=== PATIENT | female | born 1945 | race Caucasian/White ===

== ENCOUNTER → 2016-06-16 | Outpatient (CLI) | payer MEDICARE ==
--- NOTE | 2016-06-16 14:51 | REPMRS ---
Patient History The patient states she has not had a clinical breast exam in over a year. Patient is postmenopausal. Family history of breast cancer in maternal aunt at age 40. Digital Mammo Screening Bilat: June 16, 2016 - Exam #: [id number] Bilateral CC and MLO view(s) were taken. Technologist: Sarah Moncada, Technologist Prior study comparison: March 05, 2015, bilateral digital mammo screening bilat performed at [facility]. January 16, 2014, bilateral digital mammo screening bilat performed at [facility]. January 05, 2013, bilateral digital mammo screening bilat performed at [facility]. FINDINGS: There are scattered fibroglandular densities. There has been no change in the appearance of the mammogram from the prior studies. There is a mild amount of scattered fibroglandular density which is fairly symmetric. There is no interval development of dominant mass, architectural distortion, or clustered microcalcification suggestive of malignancy. ASSESSMENT: BI-RADS/ACR category 1 mammogram. Negative. Recommendation Routine screening mammogram in 1 year (for women over age 40). This mammogram was interpreted with the aid of an FDA-approved computer-aided dectection system. Electronically Signed By: Artie Greer MD 06/16/16 2929
== END ==
LOC: M RAD 13:34
PROVIDERS: ATTEND Family Medicine
DX: Z12.31 Encounter for screening mammogram for malignant neoplasm of breast (principal); Z78.0 Asymptomatic menopausal state

== ENCOUNTER → 2017-07-12 | Outpatient (CLI) | payer OTHER | LOC: M RAD 10:35 | DX: Z12.31 Encounter for screening mammogram for malignant neoplasm of breast (principal) | CPT/HCPCS: 77067 ==

== ENCOUNTER → 2018-08-15 | Outpatient (CLI) | payer MEDICARE ==
--- NOTE | 2018-08-15 13:28 | REPMRS ---
Patient History The patient states she has not had a clinical breast exam in over a year. Family history of breast cancer at age 40 in maternal aunt. 3D TOMOSYNTHESIS WAS PERFORMED. Digital Mammo Screening Bilat: August 15, 2018 - Exam #: [id number] Bilateral CC and MLO view(s) were taken. Technologist: Sarah Moncada, Technologist Prior study comparison: July 12, 2017, bilateral digital mammo screening bilat performed at [facility]. June 16, 2016, bilateral digital mammo screening bilat performed at [facility]. FINDINGS: The breast tissue is heterogeneously dense. This may lower the sensitivity of mammography. There has been no change in the appearance of the mammogram from the prior studies. There is a moderate amount of residual fibroglandular tissue which is fairly symmetric. There is no interval development of dominant mass, areas of architectural distortion, or clustered microcalcification typical of malignancy. Assessment: BI-RADS/ACR category 1 mammogram. Negative Mammogram. Recommendation Routine screening mammogram in 1 year (for women over age 40). This mammogram was interpreted with the aid of an FDA-approved computer-aided dectection system. Electronically Signed By: Francis Leong MD 08/15/18 0926
== END ==
LOC: M RAD 10:22
PROVIDERS: ATTEND Registered Nurse Community Health
DX: Z12.31 Encounter for screening mammogram for malignant neoplasm of breast (principal)

== ENCOUNTER → 2019-12-28 | Outpatient (CLI) | payer MEDICARE ==
--- NOTE | 2020-01-21 12:11 | REPMRS ---
Patient History The patient states she has not had a clinical breast exam in over a year. Patient is postmenopausal. Family history of breast cancer at age 40 in maternal aunt. No Hormone Replacement Therapy Digital Woman Screen Mammo: December 28, 2019 - Exam #: [id number] Bilateral CC and MLO view(s) were taken. Technologist: Sheyla Perez, Technologist Prior study comparison: August 15, 2018, bilateral digital mammo screening bilat, performed at [facility]. July 12, 2017, bilateral digital mammo screening bilat, performed at [facility]. June 16, 2016, bilateral digital mammo screening bilat, performed at [facility]. FINDINGS: There are scattered fibroglandular densities. The Volpara volumetric breast density category is:B. There has been no change in the appearance of the mammogram from the prior studies. There is a mild amount of scattered fibroglandular density which is fairly symmetric. There is no interval development of dominant mass, architectural distortion, or grouped microcalcification suggestive of malignancy. 3-D tomosynthesis shows no additional findings. Report was delayed due to a protracted computer network disruption experienced by this facility. Assessment: BI-RADS/ACR category 1 mammogram. Negative Mammogram. Recommendation Routine screening mammogram of both breasts in 1 year (for women over age 40). This patient's Lifetime Breast Cancer Risk is estimated at 2.4 %. This mammogram was interpreted with the aid of an FDA-approved computer-aided dectection system. Electronically Signed By: Artie Greer MD 01/21/20 8832
== END ==
LOC: M WHC 11:36
PROVIDERS: ATTEND Nurse Practitioner Family
DX: Z12.31 Encounter for screening mammogram for malignant neoplasm of breast (principal)

== ENCOUNTER → 2020-08-27 | Outpatient (CLI) | payer MEDICARE ==
[~2020-08-27] MED LIST: ASPI81TA26 PO; LIDOCAINE 1% MDV 20ML VIAL As Ordered ONE; SIMV40TA20 PO; SING10TA32 PO; SODIUM BICARBONATE 8.4% INJ 50MEQ 50 ML VIAL As Ordered ONE
[2020-08-27 12:50] VITALS: BP 182/73
--- NOTE | 2020-08-27 13:22 | REP ---
INDICATION: THYROID NODULES. COMPARISON: None. TECHNIQUE: The procedure was performed by NADIA Odonnell, under the direct supervision of Dr. Greer. The risks and benefits of the procedure were explained to the patient and an informed consent was obtained both verbally and written. Directly prior to the start of the procedure a formal time-out was completed in the procedure room. The right thyroid nodule was localized using ultrasound guidance. The skin was prepped and draped in a sterile fashion. Eight mL of buffered lidocaine was used as a local anesthetic. Using ultrasound guidance a 4 fine needle aspirations were obtained using 25 gauge needles. FINDINGS: The patient tolerated the procedure well and there were no immediate complications. After the appropriate amount of monitored convalescence the patient was discharged from the department. IMPRESSION: Ultrasound-guided right thyroid nodule fine needle aspiration. <Electronically signed by China Adkins > 08/27/20 1305 <Electronically signed by Artie Greer > 08/27/20 1150
== END ==
LOC: M IRPRO 11:29
PROVIDERS: ATTEND Nurse Practitioner Family
DX: D34 Benign neoplasm of thyroid gland (principal); Z88.0 Allergy status to penicillin; Z88.2 Allergy status to sulfonamides; Z88.8 Allergy status to other drugs, medicaments and biological substances

== ENCOUNTER → 2020-09-23 | Outpatient (REF) | payer MEDICARE ==
[~2020-09-23] MED LIST changes: -LIDOCAINE 1% MDV 20ML VIAL As Ordered ONE; -SODIUM BICARBONATE 8.4% INJ 50MEQ 50 ML VIAL As Ordered ONE
== END ==
LOC: M LAB REF 16:40
PROVIDERS: ATTEND Internal Medicine Endocrinology, Diabetes & Metabolism
DX: E04.2 Nontoxic multinodular goiter (principal)

== ENCOUNTER → 2020-11-08 | Outpatient (CLI) | payer MEDICARE ==
--- NOTE | 2020-11-13 09:59 | REP ---
INDICATION: SOLITARY PULMONARY NODULE COMPARISON: The upper lobes obtained during CT of the neck from an outside exam 07/17/2020. TECHNIQUE: Standard helical technique without the administration of intravenous contrast. FINDINGS: There is no mediastinal or hilar adenopathy. There are no pleural or pericardial effusions. The imaged upper abdomen and imaged osseous structures are within normal limits. Evaluation of the lung sung shows mild biapical pleuroparenchymal scarring unchanged from images of the upper lobes on the prior neck CT. In the medial right lung apex there is an irregular 7 mm sized nodule. This is unchanged compared to the prior exam although they are technically different. In the right lower lobe anterior aspect there is a slightly irregular nodule which has a maximal dimension of 6 mm. In the inferior right middle lobe there is an asymmetric density. In the anterior left middle lobe there is a 5 mm size nodule. In the inferior lingula there is an asymmetric density. There is mild cylindrical bronchiectasis. IMPRESSION: 1. Multiple pulmonary nodules as described above. Lung rads category 4A. Three-month follow-up chest CT recommended as per the revised Fleischner society criteria 2. Evidence of biapical pleuroparenchymal scarring which can also be reassessed in 3 months. 3. Likely bilateral anterior lung base subsegmental atelectatic changes or chronic fibrotic changes. These areas can also be reassessed in 3 months. 4. There is very mild cylindrical bronchiectasis. <Electronically signed by Onur Raines > 11/13/20 0945
== END ==
LOC: M RAD 09:44
PROVIDERS: ATTEND Internal Medicine Pulmonary Disease
DX: R91.1 Solitary pulmonary nodule (principal); R91.8 Other nonspecific abnormal finding of lung field; J47.9 Bronchiectasis, uncomplicated

== ENCOUNTER → 2021-01-21 | Outpatient (CLI) | payer MEDICARE ==
--- NOTE | 2021-01-21 12:20 | REPMRS ---
Patient History The patient states she has not had a clinical breast exam in over a year. Family history of breast cancer at age 40 in maternal aunt. No Hormone Replacement Therapy Patient states no breast complaints today. Patient has signed MRS History Sheet. Digital Woman Screen Mammo: January 21, 2021 - Exam #: [id number] Bilateral CC and MLO view(s) were taken. Technologist: RT Zackery Prior study comparison: December 28, 2019, bilateral digital woman screen mammo performed at [facility]. August 15, 2018, bilateral digital mammo screening bilat, performed at [facility]. July 12, 2017, bilateral digital mammo screening bilat, performed at [facility]. FINDINGS: There are scattered fibroglandular densities. The Volpara volumetric breast density category is:B. There has been no change in the appearance of the mammogram from the prior studies. There is a mild amount of scattered fibroglandular density which is fairly symmetric. There is no interval development of dominant mass, architectural distortion, or grouped microcalcification suggestive of malignancy. 3-D tomosynthesis shows no additional findings. Assessment: BI-RADS/ACR category 1 mammogram. Negative Mammogram. Recommendation Routine screening mammogram of both breasts in 1 year (for women over age 40). This patient's [facility] Lifetime Breast Cancer Risk is estimated at 2.2 %. This mammogram was interpreted with the aid of an FDA-approved computer-aided dectection system. Electronically Signed By: Artie Greer MD 01/21/21 3455
== END ==
LOC: M WHC 10:21
PROVIDERS: ATTEND Nurse Practitioner Family
DX: Z12.31 Encounter for screening mammogram for malignant neoplasm of breast (principal)

== ENCOUNTER → 2021-02-19 | Outpatient (CLI) | payer MEDICARE ==
--- NOTE | 2021-02-19 10:10 | REP ---
INDICATION: SOLITARY PULMONARY NODULE COMPARISON: 11/08/2020 the only prior also without contrast TECHNIQUE: Standard helical technique without intravenous contrast FINDINGS: There is stable biapical pleuroparenchymal scarring. The nodule seen previously in the apex of the right lung medially is stable. The nodule seen previously in the right lower lobe is stable. In the mid left lower lobe there is a stable 5 mm size nodule. Stable asymmetric densities are seen in the right middle lobe and lingula inferiorly. There is stable cylindrical bronchiectasis. IMPRESSION: Stable CT findings as described above. All nodules now represent category 2 lesions for which [address] follow-up is recommended according to the revised Fleischner society criteria. <Electronically signed by Onur Raines > 02/19/21 5831
== END ==
LOC: M PLAIMG 09:19
PROVIDERS: ATTEND Internal Medicine Pulmonary Disease
DX: R91.1 Solitary pulmonary nodule (principal); R91.8 Other nonspecific abnormal finding of lung field

== ENCOUNTER → 2021-08-14 | Outpatient (CLI) | payer MEDICARE | LOC: M PLAIMG 09:28 | PROVIDERS: ATTEND Physician Assistant | DX: R91.8 Other nonspecific abnormal finding of lung field (principal) ==

== ENCOUNTER → 2022-03-12 | Outpatient (CLI) | payer MEDICARE | LOC: M WHC 12:42 | PROVIDERS: ATTEND Nurse Practitioner Family | DX: Z12.31 Encounter for screening mammogram for malignant neoplasm of breast (principal) ==

== ENCOUNTER → 2022-09-11 | Outpatient (CLI) | payer MEDICARE ==
[~2022-09-11] MED LIST changes: +MONT-5 PO; -SING10TA32 PO
== END ==
LOC: M PLAIMG 12:26
PROVIDERS: ATTEND Internal Medicine Pulmonary Disease
DX: R91.8 Other nonspecific abnormal finding of lung field (principal)

== ENCOUNTER → 2023-07-02 | Outpatient (CLI) | payer MEDICARE | LOC: M WHC 12:00 | PROVIDERS: ATTEND Physician Assistant Medical | DX: Z12.31 Encounter for screening mammogram for malignant neoplasm of breast (principal) ==

== ENCOUNTER → 2024-09-18 | Outpatient (CLI) | payer MEDICARE ==
[~2024-09-18] MED LIST changes: +BAYE81TA10 PO; +MECL-86 PO; +PANT40TA29 PO; +SIMV20TA22 PO
== END ==
LOC: M WHC 09:55
PROVIDERS: ATTEND Physician Assistant Medical
DX: Z12.31 Encounter for screening mammogram for malignant neoplasm of breast (principal)